=== PATIENT | male | born 1930 | race Caucasian/White ===

== ENCOUNTER 2017-11-30 15:15 | Inpatient (IN) | payer MEDICARE, OTHER ==
[2017-11-30] VITALS (8 sets, daily range): BP systolic 85–119; BP diastolic 37–93
[~2017-11-30] VITALS: Ht 180.3 cm; Wt 71.6 kg
[2017-11-30] MEDS: ALBUTEROL SULFATE 2.5 MG/3 ML NPPB SCH (06:25)
[2017-11-30] MEDS ORDERED: DEXTROSE 50%, 50ML SYRINGE ONE (15:18)
[2017-11-30] MEDS ORDERED: DEXTROSE 50%, 50ML SYRINGE IVPush ONE (15:30)
[2017-11-30 15:52] LABS: BASOPHILS # (AUTO) 0.02 x10^3/uL (0-0.1); BASOPHILS % (AUTO) 0 % (0-1); EOSINOPHILS % (AUTO) 0 % (1-7); LYMPHOCYTES % (AUTO) 5 % (22-44); MD NO; MEAN CORPUSCULAR HEMOGLOBIN 32.8 pg (27.5-34.5); MEAN CORPUSCULAR HGB CONC 30.7 g/dL (33.2-36.2); MEAN CORPUSCULAR VOLUME 106.8 fL (81-97); MEAN PLATELET VOLUME 9.3 fL (7.4-10.4); MONOCYTES % (AUTO) 8 % (2-9); NEUTROPHILS # (AUTO) 6.77 x10^3/uL (1.8-6.8); NEUTROPHILS % (AUTO) 87 % (42-75); PLATELET COUNT 141 x10^3/uL (130-400); RED CELL DISTRIBUTION WIDTH 21.2 % (9.4-14.8)
[2017-11-30 16:03] LABS: ALANINE AMINOTRANSFERASE 18 U/L (12-78); ALBUMIN 2.7 g/dL (3.4-5.0); ANION GAP 13 mmol/L (5-15); CALCIUM 8.8 mg/dL (8.5-10.1); CHLORIDE 109 mmol/L (98-107)
[2017-11-30 16:05] LABS: ALKALINE PHOSPHATASE 112 U/L (45-117); BILIRUBIN,TOTAL 1.6 mg/dL (0.2-1.0)
[2017-11-30 16:08] LABS: TROPONIN I 0.049 ng/mL (0.000-0.045)
[2017-11-30 16:27] LABS: FREE T4 (FREE THYROXINE) 1.18 ng/dL (0.76-1.46); THYROID STIMULATING HORMONE 1.7 mIU/L (0.358-3.740)
[2017-11-30] MEDS ORDERED: PLEASE ENTER HEIGHT AND WEIGHT MC SCH (16:30)
[2017-11-30] MEDS ORDERED: PLEASE ENTER ALLERGIES MC SCH (16:30)
[2017-11-30] MEDS ORDERED: SODIUM BICARB 8.4%, 50ML SYRINGE IVPush ONE (16:30)
[2017-11-30] MEDS: DEXTROSE 10% 1,000 ML IV SCH ×2 (16:49→20:45)
[2017-11-30 17:01] LABS: FOLATE LEVEL > 20.0 ng/mL (3.1-17.5)
[2017-11-30] MEDS ORDERED: SODIUM BICARB 8.4% IV SCH (17:04)
[2017-11-30] MEDS ORDERED: D5 IV SCH (17:04)
[2017-11-30] MEDS ORDERED: NACL IV SCH (17:04)
[2017-11-30] MEDS ORDERED: ONDANSETRON ODT 4 MG PO PRN (17:30)
[2017-11-30] MEDS ORDERED: PROMETHAZINE 25 MG/ML, 1ML IM PRN (17:30)
[2017-11-30] MEDS ORDERED: POLYETHYLENE GLYCOL 17 GM PACKET PO PRN (17:30)
[2017-11-30] MEDS ORDERED: HEPARIN 5,000 UNITS/ML, 1ML SQ SCH (17:30)
[2017-11-30] MEDS ORDERED: DOCUSATE 100 MG CAPSULE PO PRN (17:30)
[2017-11-30] MEDS: AMPICILLIN/SULBACTAM 3 GM in SODIUM CHLORIDE 0.9% 100 ML IV SCH (17:50)
[2017-11-30 19:22] LABS: PROTHROMBIN TIME 18.5 Seconds (9.6-11.5)
[2017-11-30 19:23] LABS: INTERNATIONAL NORMALIZED RATIO 1.82 (0.93-1.1)
[2017-11-30] MEDS ORDERED: ALBUTEROL SULFATE 2.5 MG/3 ML NPPB PRN (20:00)
[2017-11-30 20:33] LABS: TROPONIN I 0.057 ng/mL (0.000-0.045)
[2017-11-30] MEDS: PANTOPRAZOLE 40 MG IV IVPush SCH (21:11)
[2017-12-01 00:06] VITALS: BP 115/68
[2017-12-01] MEDS: AMPICILLIN/SULBACTAM 3 GM in SODIUM CHLORIDE 0.9% 100 ML IV SCH ×3 (00:39→16:58)
[2017-12-01 02:55] LABS: MEAN CORPUSCULAR HEMOGLOBIN 31.8 pg (27.5-34.5); MEAN CORPUSCULAR HGB CONC 32.2 g/dL (33.2-36.2); MEAN CORPUSCULAR VOLUME 98.5 fL (81-97); MEAN PLATELET VOLUME 9.6 fL (7.4-10.4); PLATELET COUNT 123 x10^3/uL (130-400); RED BLOOD COUNT 3.23 x10^6/uL (4.38-5.82)
[2017-12-01 03:01] LABS: ALANINE AMINOTRANSFERASE 22 U/L (12-78); ALBUMIN 2.8 g/dL (3.4-5.0); ANION GAP 11 mmol/L (5-15); CALCIUM 8.7 mg/dL (8.5-10.1); CHLORIDE 109 mmol/L (98-107); CHOLESTEROL, TOTAL 52 mg/dL (140-239); CREATININE 3.17 mg/dL (0.7-1.3)
[2017-12-01 03:04] LABS: ALKALINE PHOSPHATASE 112 U/L (45-117); BILIRUBIN,TOTAL 3.2 mg/dL (0.2-1.0); CHOL/HDL RATIO 1.7; HDL CHOL % 60 % (26-37); HDL CHOLESTEROL (DIRECT) 31 mg/dL (40-60); LDL CHOLESTEROL,CALCULATED 9 mg/dL (54-169); LDL/HDL RATIO 0.3 (0.5-3.0); TOTAL PROTEIN 7.3 g/dL (6.4-8.2); TRIGLYCERIDES 60 mg/dL (50-200); VLDL CHOLESTEROL 12 mg/dL (0-25)
[2017-12-01 03:05] LABS: TROPONIN I 0.058 ng/mL (0.000-0.045)
[2017-12-01 03:08] LABS: ANISOCYTOSIS 1+; BASOPHILS # (AUTO) 0.01 x10^3/uL (0-0.1); BASOPHILS % (AUTO) 0 % (0-1); EOSINOPHILS % (AUTO) 0 % (1-7); LYMPHOCYTES # (AUTO) 0.44 x10^3/uL (1-3.4); LYMPHOCYTES % (AUTO) 5 % (22-44); MD MORPH REVIEW ONLY; MONOCYTES # (AUTO) 0.86 x10^3/uL (0.2-0.8); MONOCYTES % (AUTO) 11 % (2-9); NEUTROPHILS # (AUTO) 6.92 x10^3/uL (1.8-6.8); NEUTROPHILS % (AUTO) 84 % (42-75); POLYCHROMASIA 1+
[2017-12-01 03:09] LABS: MICROCYTOSIS 1+
[2017-12-01 03:10] LABS: <PLATELET ESTIMATE> ADEQUATE; <PLT MORPHOLOGY> NORMAL PLT MORPH
[2017-12-01 04:00] VITALS: BP 87/61
[2017-12-01 05:54] LABS: POTASSIUM,URINE RANDOM 52 mmol/L; SODIUM,URINE RANDOM 15 mmol/L
[2017-12-01 05:56] LABS: CULTURE INDICATED? YES; MICROSCOPIC INDICATED
[2017-12-01 05:58] LABS: CHLORIDE,URINE RANDOM < 10 mmol/L
[2017-12-01] MEDS ORDERED: PANTOPRAZOLE 40 MG IV IVPush SCH (07:30)
[2017-12-01] MEDS: PANTOPRAZOLE 40 MG IV IVPush SCH ×2 (09:51→23:09)
[2017-12-01] MEDS: ALBUTEROL SULFATE 2.5 MG/3 ML NPPB SCH ×3 (10:19→19:25)
[2017-12-01 20:19] VITALS: BP 113/66
[2017-12-02 01:06] VITALS: BP 121/80
[2017-12-02 05:13] LABS: ALANINE AMINOTRANSFERASE 31 U/L (12-78); ALBUMIN 2.6 g/dL (3.4-5.0); ANION GAP 12 mmol/L (5-15); CALCIUM 8.5 mg/dL (8.5-10.1); CHLORIDE 111 mmol/L (98-107); CREATININE 3.39 mg/dL (0.7-1.3)
[2017-12-02 05:16] LABS: ALKALINE PHOSPHATASE 99 U/L (45-117); TOTAL PROTEIN 6.7 g/dL (6.4-8.2)
[2017-12-02 05:19] LABS: MEAN CORPUSCULAR HEMOGLOBIN 31.7 pg (27.5-34.5); MEAN CORPUSCULAR HGB CONC 31.8 g/dL (33.2-36.2); MEAN CORPUSCULAR VOLUME 99.8 fL (81-97); RED BLOOD COUNT 3.28 x10^6/uL (4.38-5.82); RED CELL DISTRIBUTION WIDTH 24.3 % (9.4-14.8)
[2017-12-02] MEDS ORDERED: DEXTROSE 50%, 50ML SYRINGE ONE (05:53)
[2017-12-02] MEDS ORDERED: DEXTROSE 50%, 50ML SYRINGE IVPush ONE (06:00)
[2017-12-02] MEDS ORDERED: DEXTROSE 50%, 50ML SYRINGE IVPush PRN (06:00)
[2017-12-02] MEDS ORDERED: GLUCAGON 1 MG IM PRN (06:00)
[2017-12-02] MEDS ORDERED: DEXTROSE 4 GM TAB.CHEW PO PRN (06:00)
[2017-12-02] MEDS: AMPICILLIN/SULBACTAM 3 GM in SODIUM CHLORIDE 0.9% 100 ML IV SCH ×2 (06:17→17:47)
[2017-12-02 06:29] LABS: BASOPHILS # (AUTO) 0.03 x10^3/uL (0-0.1); BASOPHILS % (AUTO) 0 % (0-1); EOSINOPHILS # (AUTO) 0.01 x10^3/uL (0-0.4); EOSINOPHILS % (AUTO) 0 % (1-7); LYMPHOCYTES % (AUTO) 7 % (22-44); MD SCAN; MEAN PLATELET VOLUME 9.8 fL (7.4-10.4); MONOCYTES # (AUTO) 0.96 x10^3/uL (0.2-0.8); MONOCYTES % (AUTO) 13 % (2-9); NEUTROPHILS # (AUTO) 5.78 x10^3/uL (1.8-6.8); NEUTROPHILS % (AUTO) 79 % (42-75); PLATELET COUNT 99 x10^3/uL (130-400)
[2017-12-02 06:50] VITALS: BP 115/63
[2017-12-02] MEDS: SODIUM CHLORIDE FLUSH 10ML SYR IVF SCH ×2 (08:03→20:27)
[2017-12-02] MEDS: ALBUTEROL SULFATE 2.5 MG/3 ML NPPB SCH ×4 (08:27→20:00)
[2017-12-02] MEDS: ACETAMINOPHEN 325 MG TABLET PO PRN (13:51)
[2017-12-02] MEDS: D5%-0.45% NACL 1,000 ML IV SCH (14:02)
[2017-12-02 15:02] VITALS: BP 120/71
[2017-12-02 18:30] VITALS: BP 109/67
[2017-12-03 00:38] VITALS: BP 111/66
[2017-12-03] MEDS: D5%-0.45% NACL 1,000 ML IV SCH ×2 (04:59→16:39)
[2017-12-03] MEDS: AMPICILLIN/SULBACTAM 3 GM in SODIUM CHLORIDE 0.9% 100 ML IV SCH ×2 (05:01→16:39)
[2017-12-03 05:41] LABS: MEAN CORPUSCULAR HGB CONC 31.7 g/dL (33.2-36.2); MEAN CORPUSCULAR VOLUME 100.8 fL (81-97); MEAN PLATELET VOLUME 9.8 fL (7.4-10.4); PLATELET COUNT 106 x10^3/uL (130-400); RED BLOOD COUNT 3.28 x10^6/uL (4.38-5.82)
[2017-12-03 05:45] LABS: CHLORIDE 116 mmol/L (98-107)
[2017-12-03 05:50] LABS: ANION GAP 11 mmol/L (5-15); CALCIUM 8.3 mg/dL (8.5-10.1); CREATININE 3.17 mg/dL (0.7-1.3)
[2017-12-03 06:18] LABS: MD MORPH REVIEW ONLY
[2017-12-03 06:19] LABS: BASOPHILS % (AUTO) 0 % (0-1); EOSINOPHILS # (AUTO) 0.09 x10^3/uL (0-0.4); EOSINOPHILS % (AUTO) 1 % (1-7); LYMPHOCYTES # (AUTO) 0.61 x10^3/uL (1-3.4); LYMPHOCYTES % (AUTO) 10 % (22-44); MONOCYTES # (AUTO) 0.98 x10^3/uL (0.2-0.8); MONOCYTES % (AUTO) 16 % (2-9); NEUTROPHILS # (AUTO) 4.68 x10^3/uL (1.8-6.8); NEUTROPHILS % (AUTO) 74 % (42-75); RED CELL DISTRIBUTION WIDTH 23.3 % (9.4-14.8)
[2017-12-03 06:20] LABS: <PLATELET ESTIMATE> ADEQUATE; <PLT MORPHOLOGY> NORMAL PLT MORPH; ANISOCYTOSIS 1+; POLYCHROMASIA 1+
[2017-12-03] MEDS: ALBUTEROL SULFATE 2.5 MG/3 ML NPPB SCH ×4 (06:56→21:00)
[2017-12-03 07:33] VITALS: BP 120/64
[2017-12-03] MEDS: SODIUM CHLORIDE FLUSH 10ML SYR IVF SCH ×2 (09:00→20:56)
[2017-12-03 12:37] VITALS: BP 117/73
[2017-12-03 14:00] VITALS: BP 117/73
[2017-12-03 20:07] VITALS: BP 126/72
[2017-12-04 02:04] VITALS: BP 121/78
[2017-12-04] MEDS: D5%-0.45% NACL 1,000 ML IV SCH ×2 (05:23→20:57)
[2017-12-04] MEDS: AMPICILLIN/SULBACTAM 3 GM in SODIUM CHLORIDE 0.9% 100 ML IV SCH ×2 (05:23→17:55)
[2017-12-04 06:58] VITALS: BP 131/75
[2017-12-04] MEDS: ALBUTEROL SULFATE 2.5 MG/3 ML NPPB SCH ×4 (07:00→20:00)
[2017-12-04] MEDS: SODIUM CHLORIDE FLUSH 10ML SYR IVF SCH ×2 (09:00→20:57)
[2017-12-04 12:05] VITALS: BP 131/76
[2017-12-04] MEDS ORDERED: DOCU-131 PO (13:13)
[2017-12-04] MEDS ORDERED: POLY17PO5 PO (13:13)
[2017-12-04] MEDS ORDERED: ACET325T14 PO (13:13)
[2017-12-04] MEDS ORDERED: HALOPERIDOL 2 MG/ML ORAL SOL PO PRN (13:30)
[2017-12-04 19:17] VITALS: BP 128/82
[2017-12-05] MEDS: ACETAMINOPHEN 325 MG TABLET PO PRN (01:11)
[2017-12-05 02:18] VITALS: BP 122/58
[2017-12-05] MEDS: AMPICILLIN/SULBACTAM 3 GM in SODIUM CHLORIDE 0.9% 100 ML IV SCH (05:52)
[2017-12-05] MEDS: ALBUTEROL SULFATE 2.5 MG/3 ML NPPB SCH ×3 (07:35→14:15)
[2017-12-05 08:05] VITALS: BP 94/62
[2017-12-05] MEDS: SODIUM CHLORIDE FLUSH 10ML SYR IVF SCH (09:03)
[2017-12-05] MEDS: D5%-0.45% NACL 1,000 ML IV SCH (10:40)
[2017-12-05 13:57] VITALS: BP 139/80
== END 2017-12-05 16:17 | DRG 70 ==
LOC: ED 17:03 → EDIP 17:04 → ED 18:15 → CCU 18:24 → 4EST 12-01 20:04
PROVIDERS: ADMIT Internal Medicine; ATTEND Internal Medicine
PROC: 30233N1 Transfusion of Nonautologous Red Blood Cells into Peripheral Vein, Percutaneous Approach (ICD-10-PCS; 2017-11-30)
PROC: 0T9B70Z Drainage of Bladder with Drainage Device, Via Natural or Artificial Opening (ICD-10-PCS; principal; 2017-12-01)
DX: G93.41 Metabolic encephalopathy (principal); N17.0 Acute kidney failure with tubular necrosis; E43 Unspecified severe protein-calorie malnutrition; E87.2 Acidosis; D58.9 Hereditary hemolytic anemia, unspecified; E87.5 Hyperkalemia; I48.2 Chronic atrial fibrillation; D62 Acute posthemorrhagic anemia; I27.20 Pulmonary hypertension, unspecified; I50.42 Chronic combined systolic (congestive) and diastolic (congestive) heart failure; M62.82 Rhabdomyolysis; E16.2 Hypoglycemia, unspecified; Z51.5 Encounter for palliative care; M54.9 Dorsalgia, unspecified; I08.1 Rheumatic disorders of both mitral and tricuspid valves; I11.0 Hypertensive heart disease with heart failure; I25.10 Atherosclerotic heart disease of native coronary artery without angina pectoris; D75.89 Other specified diseases of blood and blood-forming organs; E78.5 Hyperlipidemia, unspecified; G89.29 Other chronic pain; I25.2 Old myocardial infarction; J44.9 Chronic obstructive pulmonary disease, unspecified; Z66 Do not resuscitate; Z82.3 Family history of stroke; Z82.49 Family history of ischemic heart disease and other diseases of the circulatory system; Z85.118 Personal history of other malignant neoplasm of bronchus and lung; Z86.73 Personal history of transient ischemic attack (TIA), and cerebral infarction without residual deficits; Z87.891 Personal history of nicotine dependence; Z92.21 Personal history of antineoplastic chemotherapy; Z92.3 Personal history of irradiation; Z95.1 Presence of aortocoronary bypass graft; Z98.42 Cataract extraction status, left eye; Z68.22 Body mass index [BMI] 22.0-22.9, adult
CPT/HCPCS: 36415; 36430; 36600; 70450; 71045; 74230; 80048; 80053; 80061; 81001; 82140; 82436; 82533; 82550; 82570; 82607; 82746; 82803; 82962; 83690; 83735; 84100; 84133; 84300; 84439; 84443; 84481; 84484; 85025; 85610; 86850; 86900; 86923; 87081; 87086; 93005; 93306; 94640; 96374; J0295; J7613; C9113; P9016